=== PATIENT | male | born 1990 | race Caucasian/White ===

== ENCOUNTER → 2020-12-09 09:00 | Outpatient (BNVA) | payer OTHER, SELFPAY | PROVIDERS: Family Provider Family Medicine; Visit Provider Family Medicine | DX: Z20.828 Contact with and (suspected) exposure to other viral communicable diseases (principal) | CPT/HCPCS: 87635 ==

== ENCOUNTER 2022-12-30 20:25 | Emergency (ER) | payer OTHER, SELFPAY ==
[2022-12-30 20:38] VITALS: BP 126/79; PULSE 93; RESP 18; TEMP 36.4; O2SAT 98; BMI 19.0
--- NOTE | 2022-12-30 21:41 | W.ED.GENADLT ---
HPI - General Adult General: Chief complaint: General Medical Stated complaint: facial nerve pain Time Seen by Provider: 12/30/22 21:34 History of Present Illness: Patient is a 32-year-old male comes to the ED with dental pain. Patient states that he has been having pain in his bottom back molars and was supposed to get some dental work done on them a while ago but did not get it done. Approximately 2 days ago he started developing pain in his right lower jaw that radiates up through the right side of his face. Denies any other symptoms. Pain waxes and wanes and is not always severe. He has an appointment with a dentist next January 06. Associated symptoms: Deny chest pain, dyspnea, headache(s), nausea, rash, palpitations or vomiting Review of Systems Const: Denies: fever(s), chills or fatigue Eyes: Denies: change in vision or eye discomfort ENMT: Reports: dental pain (Right lower molar); Denies: throat pain, odynophagia, nasal discharge or nasal congestion Card: Denies: chest pain, palpitations, edema, swelling of feet/ankles, dyspnea on exertion or orthopnea Resp: Denies: dyspnea, productive cough or non-productive cough GI: Denies: abdominal pain, nausea, vomiting, diarrhea, constipation or hematochezia : Denies: flank pain, difficulty urinating, dysuria or hematuria Musc: Denies: neck pain, back pain or extremity swelling Skin/Breast: Denies: rash or new lesions Neuro: Denies: headache(s), numbness in extremities or weakness in extremities [facility] ED PFSH: Medical History (Updated 12/31/22 @ 13:22 by LAURA Vaughn) No pertinent family history No pertinent past medical history Social History Smoking and tobacco status: current every day smoker cigarettes Alcohol intake: current Alcohol intake frequency: holidays/special occasions only Physical Exam Const: COMMON NORMALS: patient oriented x3 and alert GENERAL APPEARANCE: cooperative HENMT: COMMON NORMALS: normocephalic HEAD & SCALP: normocephalic MOUTH: Normal oral and palatal mucosa present TEETH & GINGIVA: Yes abnormal tooth and associated gingiva lower right third molar and Yes caries THROAT: posterior oropharynx normal and uvula midline Neck/C-Spine: COMMON NORMALS: supple GENERAL: Yes normal visual inspection Resp: COMMON NORMALS: normal respiratory effort, No retractions, No use of accessory muscles and clear to auscultation bilaterally AUSCULTATION: clear to auscultation bilaterally Cardio: COMMON NORMALS: regular rate, regular rhythm, S1 normal heart sound present, S2 normal heart sound present, No gallops present (Cardio), No clicks present (Cardio), No murmurs present (Cardio) and Peripheral pulses 2+ throughout RATE: regular rate RHYTHM: regular rhythm HEART SOUNDS: S1 normal heart sound present and S2 normal heart sound present PERIPHERAL PULSES: Peripheral pulses 2+ throughout GI: COMMON NORMALS: Normal to inspection, nondistended, normoactive bowel sounds present, Soft to palpation, non-tender and no masses PALPATION: Yes Soft to palpation : COMMON NORMALS: Yes no CVA tenderness BLADDER/KIDNEY EXAM: Yes no CVA tenderness Back/Pelvis: COMMON NORMALS: no CVA tenderness Extremity: COMMON NORMALS: normal to inspection Neuro: COMMON NORMALS: patient oriented x3 SENSORIUM/ORIENTATION: Yes alert GAIT: Yes Normal gait present Skin: GENERAL SKIN EXAM: dry skin Course Vital Signs: Vital signs: Vital Signs Temperature 97.5 F L 12/30/22 20:38 Pulse Rate 78 12/30/22 21:55 Respiratory Rate 18 12/30/22 21:55 Blood Pressure 126/79 12/30/22 20:38 Pulse Oximetry 97 12/30/22 21:55 Oxygen Delivery Me thod 12/30/22 20:38 MDM - General Adult Medical Decision Making Patient is a 32-year-old male comes to the ED with dental pain. Patient states that he has been having pain in his bottom back molars and was supposed to get some dental work done on them a while ago but did not get it done. Approximately 2 days ago he started developing pain in his right lower jaw that radiates up through the right side of his face. Denies any other symptoms. Pain waxes and wanes and is not always severe. He has an appointment with a dentist next January 06. Vital stable. Patient has dental caries. Patient was stable for discharge home and sent home with a prescription for clindamycin. Patient was also sent with a prescription for Celebrex for any pain. Told to follow-up with PCP in the next week for reevaluation. Patient understood and agreed with plan. Discharge Plan Discharge Patient Disposition: Home Clinical Impression: Pain, dental Condition: Stable Prescriptions: New Cleocin HCl 150 mg capsule 300 mg PO QID 7 Days Qty: 56 0RF Celebrex 100 mg capsule 100 mg PO BID PRN (Reason: pain) Qty: 20 0RF Discharge Orders: Discharge ED (Routine); Ordered 12/30/22 Ordered By: Otis Cruz Referrals: Pierre Taveras MD [Family Provider] - Discharge Diet: Regular Discharge Activity: Increase activity as tolerated Patient Instructions: Toothache (ED) Activity Restrictions/Additional Instructions: Follow-up with dentist at your next scheduled appointment. Take medications as prescribed. Return to the ER or your medical provider if condition worsens. Please read and understand discharge instructions. Thank you for choosing [facility] for your healthcare needs today. Please realize this is an emergency room and that we are providing you with a medical screening exam and this may not be complete and all inclusive of all the testing and or work up that you may need to determine your ailment or severity of your illness. It is very important that you follow up as instructed or that you return to the Emergency Department should you have concerns or if your condition changes or worsens in any way. Coding Level of Care Code ED [employer] Technical Officer for [facility] Fwarron Exam Comprehensive
[2022-12-30] MEDS: clindamycin 150 mg Capsule 300 MG PO (21:53)
[2022-12-30 21:55] VITALS: PULSE 78; RESP 18; O2SAT 97
== END 2022-12-30 21:59 | disposition home or self-care (01) ==
PROVIDERS: Emergency Provider Physician Assistant; Family Provider Family Medicine
DX: K08.89 Other specified disorders of teeth and supporting structures (principal); F17.210 Nicotine dependence, cigarettes, uncomplicated
CPT/HCPCS: 99283